=== PATIENT | female | born 1980 | race Caucasian/White ===

== ENCOUNTER 2022-12-23 12:22 | Emergency (ER) | payer BC, MEDICAID, SELFPAY ==
[2022-12-23 12:32] VITALS: BP 121/68; PULSE 102; RESP 20; TEMP 37.7; O2SAT 97; BMI 34.2
--- NOTE | 2022-12-23 12:42 | XRR_ITS ---
PROCEDURE INFORMATION: Exam: XR Chest Exam date and time: 12/23/2022 12:46 PM Age: 42 years old Clinical indication: Cough and dyspnea; Additional info: Dyspnea/cough TECHNIQUE: Imaging protocol: Radiologic exam of the chest. Views: 1 view. COMPARISON: No relevant prior studies available. FINDINGS: Lungs: Unremarkable. No consolidation. Pleural spaces: Unremarkable. No pleural effusion. No pneumothorax. Heart/Mediastinum: Unremarkable. No cardiomegaly. Bones/joints: Unremarkable for age. XR/XR chest 1V portable [id number] IMPRESSION: Negative chest
[2022-12-23 12:59] LABS: Basophils % 0.3 %; Eosinophils # 0.1 10^3/uL (0.0-0.8); Eosinophils % 1.7 %; Hematocrit 39.6 % (37.0-47.0); Hemoglobin 12.6 g/dL (11.5-15.3); Lymphocytes # 0.5 10^3/uL (0.8-4.8); Lymphocytes % 8.8 %; Mean Corpuscular HGB Conc 31.8 g/dL (30.0-36.0); Mean Platelet Volume 10.8 fL (7.4-10.4); Monocytes # 0.7 10^3/uL (0.2-0.9); Monocytes % 11.2 %; Neutrophils # 4.66 10^3/uL (1.8-7.7); Neutrophils % 77.7 %; Nucleated Red Blood Cells % 0 %; Platelet Count 192 10^3/cmm (130-400); Red Blood Count 4.66 10^6/uL (4.1-5.3); Red Cell Distribution Width 14.6 % (12.1-15.1)
--- NOTE | 2022-12-23 13:11 | W.ED.SOB ---
HPI - SOB/Dyspnea General: Chief Complaint: Shortness of Breath/Dyspnea Stated Complaint: sob Time Seen by Provider: 12/23/22 12:42 Source: patient Mode of arrival: ambulatory History of Present Illness: HPI Narrative: 42-year-old female presents emergency room with cough shortness of breath headache generalized not feeling well some loose stools. Rhinorrhea and myalgias. No dysuria urgency or frequency. Patient was seen recently and tested positive for strep, started on oral antibiotics but despite this continues to have symptoms that seem progressively worsening. MD elicited complaint: shortness of breath and cough Onset (ago): day(s) Timing: progressively worsening Severity: mild Associated symptoms: Reports chest congestion, cough, myalgias and nausea; Deny abdominal pain, chest pain, diaphoresis, dizziness, extremity pain, fever(s), hemoptysis, lightheadedness, orthopnea, palpitations, paresthesias, polydipsia, polyuria, rash, sense of impending doom, syncope or vomiting Treatment prior to arrival: none Review of Systems Const: Denies: fever(s) or diaphoresis ENMT: Denies: throat pain, ear or mastoid pain, nasal discharge or nasal congestion Card: Denies: chest pain, palpitations, lightheadedness, syncope or orthopnea Resp: Reports: chest congestion; Denies: hemoptysis GI: Reports: nausea; Denies: abdominal pain or vomiting : Denies: flank pain, difficulty voiding, dysuria, urinary frequency or urinary urgency Musc: Denies: extremity pain Skin/Breast: Denies: rash or pruritus Neuro: Denies: dizziness Endo: Denies: polyuria or polydipsia Physical Exam Const: COMMON NORMALS: no acute distress GENERAL APPEARANCE: cooperative and comfortable ORIENTATION/CONSCIOUSNESS: Yes awake, Yes oriented to person, Yes oriented to place and Yes oriented to time HENMT: COMMON NORMALS: normocephalic, atraumatic, hearing grossly normal bilaterally, external ears normal, EAC's normal, TM's normal bilaterally, Normal nasal mucous membranes and turbinates present, moist oral mucous membranes and oropharynx normal HEAD & SCALP: normocephalic and atraumatic NOSE: Normal nasal mucous membranes and turbinates present EXTERNAL EAR: Yes external ears normal EXTERNAL AUDITORY CANAL: EAC's normal TYMPANIC MEMBRANE: TM's normal bilaterally Eye: COMMON NORMALS: Equal, round and reactive pupils present, EOMs intact bilaterally, conjunctivae normal and no scleral icterus CONJUNCTIVA: Yes conjunctivae normal PUPIL: Yes Equal, round and reactive pupils present Neck/C-Spine: COMMON NORMALS: full ROM, no lymphadenopathy, supple and no JVD Lymph: LYMPHATIC: no lymphadenopathy noted and no lymphedema noted Resp: COMMON NORMALS: normal respiratory effort, No retractions, No use of accessory muscles and clear to auscultation bilaterally AUSCULTATION: clear to auscultation bilaterally Cardio: COMMON NORMALS: no JVD, regular rate, regular rhythm and No murmurs present (Cardio) RATE: regular rate RHYTHM: regular rhythm GI: COMMON NORMALS: Soft to palpation and No hepatosplenomegaly present AUSCULTATION: Yes normoactive bowel sounds PALPATION: Yes Soft to palpation, No Tenderness to palpation present (GI), No Guarding due to palpation present (GI) and Yes No hepatosplenomegaly present Extremity: COMMON NORMALS: normal to inspection, capillary refill normal, no clubbing, cyanosis or edema, no calf tenderness and no pedal edema Neuro: SENSORIUM/ORIENTATION: Yes oriented to person, Yes oriented to place and Yes oriented to time Skin: COMMON NORMALS: no rashes or lesions noted GENERAL SKIN EXAM: no rashes or lesions noted Course Vital Signs: Vital signs: Vital Signs Temperature 99.9 F H 12/23/22 12:32 Pulse Rate 98 12/23/22 13:30 Respiratory Rate 16 12/23/22 13:30 Blood Pressure 104/71 12/23/22 13:30 Pulse Oximetry 93 12/23/22 13:30 Oxygen Delivery Me thod 12/23/22 12:32 MDM - SOB/Dyspnea Medical Decision Making Patient presents with cough cold symptoms myalgias and diarrhea. She had a COVID test was an antigen suspect she may have been out of the window we will do a respiratory panel here contact her with results when they are available patient her clinical presentation I suspect she does have COVID supportive cares monitor oxygen saturations. No signs of pneumonia or other ongoing infections no sign of sinus infection. Despite her cough her lung sounds are relatively clear. No evidence of heart failure or PE. Medical Records I reviewed the patient's medical records. Lab Data I reviewed the patient's lab results. 12/23/22 12:54 12/23/22 12:54 Labs/Radiology: Radiology Impressions Chest X-Ray 12/23/22 12:42 IMPRESSION: Negative chest Laboratory Results WBC 6.0 10^3/uL (4.0-10.0) 12/23/22 12:54 RBC 4.66 10^6/uL (4.1-5.3) 12/23/22 12:54 Hgb 12.6 g/dL (11.5-15.3) 12/23/22 12:54 Hct 39.6 % (37.0-47.0) 12/23/22 12:54 MCV 85.0 fl (81-99) 12/23/22 12:54 MCH 27.0 pg (28.0-34.0) L 12/23/22 12:54 MCHC 31.8 g/dL (30.0-36.0) 12/23/22 12:54 RDW 14.6 % (12.1-15.1) 12/23/22 12:54 Plt Count 192 10^3/cmm (130-400) 12/23/22 12:54 MPV 10.8 fL (7.4-10.4) H 12/23/22 12:54 Neut % (Auto) 77.7 % 12/23/22 12:54 Lymph % (Auto) 8.8 % 12/23/22 12:54 [place] % (Auto) 11.2 % 12/23/22 12:54 Eos % (Auto) 1.7 % 12/23/22 12:54 Baso % (Auto) 0.3 % 12/23/22 12:54 Neut # (Auto) 4.66 10^3/uL (1.8-7.7) 12/23/22 12:54 Lymph # (Auto) 0.5 10^3/uL (0.8-4.8) L 12/23/22 12:54 [place] # (Auto) 0.7 10^3/uL (0.2-0.9) 12/23/22 12:54 Eos # (Auto) 0.1 10^3/uL (0.0-0.8) 12/23/22 12:54 Baso # (Auto) 0.0 10^3/uL (0.0-0.1) 12/23/22 12:54 Nucleated RBC % (auto) 0 % 12/23/22 12:54 Nucleated RBCs # 0.0 /100WBC 12/23/22 12:54 Sodium 136 mmol/L (136-145) 12/23/22 12:54 Potassium 4.1 mmol/L (3.5-5.1) 12/23/22 12:54 Chloride 101 mmol/L (98-107) 12/23/22 12:54 Carbon Dioxide 24 mmol/L (22-29) 12/23/22 12:54 Anion Gap 15.1 (5-19) 12/23/22 12:54 BUN 9 mg/dL (6-20) 12/23/22 12:54 Creatinine 0.7 mg/dL (0.5-0.9) 12/23/22 12:54 GFR Calculation 91.3 mL/min (90-130) 12/23/22 12:54 Glucose 60 mg/dL (65-115) L 12/23/22 12:54 Calculated Osmolality 279 mOsm/kg (285-295) L 12/23/22 12:54 Calcium 9.1 mg/dL (8.5-10.5) 12/23/22 12:54 Coronavirus 229E (PCR) Not detected (NOT DETECT) 12/23/22 13:41 Parainfluenza 1 (PCR) Not detected (NOT DETECT) 12/23/22 16:42 Parainfluenza 2 (PCR) Not detected (NOT DETECT) 12/23/22 16:42 Parainfluenza 3 (PCR) Not detected (NOT DETECT) 12/23/22 16:42 Parainfluenza 4 (PCR) Detected (NOT DETECT) A 12/23/22 16:42 SARS-CoV-2 (PCR) Not detected (NOT DETECT) 12/23/22 13:41 Discharge Plan Discharge Patient Disposition: Home Clinical Impression: Suspected 2019-nCoV infection, Strep pharyngitis Condition: Stable Prescriptions: New amoxicillin 875 mg tablet 875 mg PO BID Qty: 20 0RF albuterol sulfate 90 mcg/actuation HFA aerosol inhaler 2 inh INHALATION Q4H PRN (Reason: shortness of breath or wheezing) Qty: 18 0RF No Action baclofen 20 mg tablet 20 mg PO DAILY montelukast 10 mg tablet 10 mg PO DAILY lisinopril 20 mg tablet 20 mg PO DAILY oxycodone-acetaminophen [Percocet] 10-325 mg tablet 1 tab PO Q8H PRN albuterol sulfate [ProAir HFA] 90 mcg/actuation HFA aerosol inhaler 1 inh inhalation QID Pulmicort Flexhaler 180 mcg/actuation aerosol powdr breath activated 1 inh inhalation DAILY Advair HFA 230-21 mcg/actuation HFA aerosol inhaler 2 puff inhalation BID cyanocobalamin (vitamin B-12) 1,000 mcg capsule 1,000 mcg PO DAILY epinephrine [EpiPen] 0.3 mg/0.3 mL auto-injector 0.3 mg IM Q10M PRN Rx Instructions: for 2 doses ferrous sulfate [FeroSul] 325 mg (65 mg iron) tablet 325 mg PO DAILY furosemide [Lasix] 20 mg tablet 10 mg PO QAM levocetirizine [Allergy Relief (levocetirizin)] 5 mg tablet 5 mg PO DAILY pregabalin [Lyrica] 100 mg capsule 100 mg PO DAILY Narcan 4 mg/actuation spray,non-aerosol 4 mg intranasal Q2M PRN Rx Instructions: spray 1 dose into ONE nostril; alternate nostrils w each dose until help arrives oxcarbazepine 300 mg/5 mL (60 mg/mL) suspension 150 mg PO BID omeprazole 20 mg capsule,delayed release(DR/EC) 20 mg PO DAILY prazosin 5 mg capsule 5 mg PO DAILY Spiriva Respimat 1.25 mcg/actuation mist 2 puff inhalation DAILY Discharge Orders: Discharge ED (Routine); Ordered 12/23/22 Ordered By: Todd Layton Discharge Diet: Usual diet Discharge Activity: Increase activity as tolerated Activity Restrictions/Additional Instructions: You were seen today for upper respiratory infection. Based on your clinical presentation and exam suspect that you do have COVID. COVID antigen tests are only positive for a 5-day window and its common for people at the peak of their symptoms to be passed that 5-day window. A PCR test was run on you today and we will contact you with the results. Your oxygen status was adequate and you do not need supplemental oxygen would recommend that you use albuterol as needed. Follow-up with emergency your primary care doctor or in the emergency room if your symptoms worsen particularly if your breathing worsens. It can be helpful to monitor your home oxygen saturation with a finger oximeter which can be bought at a local drugstore. Your oxygen saturations should stay at or above 92% while at rest. Coding Level of Care Code ED Head Of Marketing for [facility]ak Lomax
[2022-12-23 13:15] LABS: Anion Gap 15.1 (5-19); Blood Urea Nitrogen 9 mg/dL (6-20); Calcium 9.1 mg/dL (8.5-10.5); Carbon Dioxide 24 mmol/L (22-29); Chloride 101 mmol/L (98-107); Glomerular Filtration Rate 91.3 mL/min (90-130); Glucose 60 mg/dL (65-115); Osmolality Calculated 279 mOsm/kg (285-295); Potassium 4.1 mmol/L (3.5-5.1); Sodium 136 mmol/L (136-145)
[2022-12-23 13:30] VITALS: BP 104/71; PULSE 98; RESP 16; O2SAT 93
[2022-12-23 15:37] LABS: Adenovirus Not Detected (NOT DETECT); Chlamydia Pneumoniae Not Detected (NOT DETECT); Coronavirus 229E,HKU1,NL63,OC4 Not Detected (NOT DETECT); Human Metapneumovirus Not Detected (NOT DETECT); Human Rhinovirus/Enterovirus Not Detected (NOT DETECT); Influenza A Not Detected (NOT DETECT); Influenza A H1 Not Detected (NOT DETECT); Influenza A H1-2009 Not Detected (NOT DETECT); Influenza A H3 Not Detected (NOT DETECT); Influenza B Not Detected (NOT DETECT); Mycoplasma Pneumoniae Not Detected (NOT DETECT); Parainfluenza Virus Type 1 Not Detected (NOT DETECT); Parainfluenza Virus Type 2 Not Detected (NOT DETECT); Parainfluenza Virus Type 3 Not Detected (NOT DETECT); Parainfluenza Virus Type 4 Detected (NOT DETECT); Respiratory Syncytial Virus A Not Detected (NOT DETECT); Respiratory Syncytial Virus B Not Detected (NOT DETECT); SARS-COV-2 Not Detected (NOT DETECT)
[2022-12-23 16:42] LABS: Parainfluenza Virus Type 1 Not Detected (NOT DETECT); Parainfluenza Virus Type 2 Not Detected (NOT DETECT); Parainfluenza Virus Type 3 Not Detected (NOT DETECT); Parainfluenza Virus Type 4 Detected (NOT DETECT); Results from Genmark
== END 2022-12-23 13:46 | disposition home or self-care (01) ==
PROVIDERS: Emergency Provider Family Medicine
DX: J02.0 Streptococcal pharyngitis (principal); Z20.822 Contact with and (suspected) exposure to COVID-19
CPT/HCPCS: 36415; 71045; 80048; 85025; 87631; 87635; 99284